=== PATIENT | female | born 1950 | race Caucasian/White ===

== ENCOUNTER 2016-12-16 18:05 | Inpatient (IN) ==
--- NOTE | 2016-12-16 18:40 | Emergency Department Note ---
Disposition Clinical Impression: Dysarthria, Right facial numbness Disposition: Admitted As Inpatient Condition: Good Referrals: Andressa Lindsey MD [Primary Care Provider] - Forms: ED Satisfaction Letter Weakness HPI - General Chief complaint: ED Weakness Stated complaint: Neuro symptoms Time Seen by Provider: 12/16/16 18:19 Source: family Mode of arrival: private vehicle Limitations: no limitations Nursing Notes Reviewed: Yes Vital Signs Reviewed: Yes - History of Present Illness HPI Narrative: 66-year-old female history of hypertension and hyperlipidemia who presents to the ER due to weakness, slurring words, right facial numbness. Patient states that yesterday she noticed some worry vision. She reports she woke up today and felt better. Family reports that they saw her this morning and she seemed more quiet than usual. Family states that they were out today and that they were called because she was acting abnormal. When they saw her again they state that she was slurring her words and was having trouble walking. Patient also complained of right facial numbness. No history of CVA or TIA. No cardiac history. Family reports she has been noncompliant with her medications ever since her 3 years ago. No other complaints. No recent injuries. Pt Subjective Complaint: generalized weakness/fatigue, difficulty ambulating Onset (ago): hour(s) Duration: intermittent Migration: none Pain Severity: none Pain Scale: 0 Improves with: none Worsens with: none Associated symptoms: Reports: chest pain (Earlier today now resolved), headaches - Related Data Home Medications Medication Instructions Recorded Confirmed Rosuvastatin Calcium [Crestor] 10 mg PO HS 12/16/16 12/16/16 hydroCHLOROthiazide 25 mg PO DAILY 12/16/16 12/16/16 [Hydrochlorothiazide] Allergies Allergy/AdvReac Type Severity Reaction Status Date / Time No Known Allergies Allergy Verified 12/16/16 18:17 All systems ED: reviewed and negative except as stated. Constitutional: Denies: fever Cardiovascular: Reports: chest pain Respiratory: Denies: cough, dyspnea Gastrointestinal: Denies: abdominal pain, nausea, vomiting Neurological: Reports: headache, paresthesias (Right face). Denies: weakness, numbness Past Medical History - Past Medical History Attestation: Yes The following information was validated with the patient. Source: patient, obtained from family Medical history: Reports: hypertension Psychiatric history: Reports: anxiety - Social History Smoking Status: Current every day smoker Smokeless Tobacco Status: No Alcohol use: Reports: none Drug use: Reports: none Physical Exam - General Limitations: no limitations General appearance: alert, in no apparent distress - Head Head exam: atraumatic, normocephalic, normal inspection - Eye Eye exam: Present: normal appearance, PERRL, EOMI - ENT ENT exam: normal exam - Neck Neck exam: Present: normal inspection, full ROM - Chest Chest inspection: Present: normal inspection, symmetric chest wall rise - Respiratory Respiratory exam: Present: normal lung sounds bilaterally - Cardiovascular Cardiovascular exam: Present: regular rate, normal rhythm, normal heart sounds - Abdominal Exam Abdominal exam: Present: soft, Non-Tender. Absent: tenderness - Extremities Exam Extremities exam: Present: normal inspection, full ROM - Expanded Upper Extremity Exam Shoulder exam: Present: normal inspection, full ROM Arm exam: Present: normal inspection, full ROM Elbow exam: Present: normal inspection, full ROM Forearm/Wrist exam: Present: normal inspection, full ROM Hand exam: Present: normal inspection, full ROM Vascular exam: Normal: radial pulse - Expanded Lower Extremity Exam Hip/Pelvis exam: Present: normal inspection, full ROM Upper leg exam: Present: normal inspection, full ROM Knee exam: Present: normal inspection, full ROM Lower leg exam: Present: normal inspection, full ROM Ankle exam: Present: normal inspection, full ROM Foot/toe exam: Present: normal inspection, full ROM Neurovascular/Tendon exam: Absent: motor deficit, sensory deficit - Neurological Exam Neurological exam: Present: alert, oriented X3, CN II-XII intact (With the exception of paresthesias to the right maxilla). Absent: motor sensory deficit - Expanded Neurological Exam Patient oriented to: Present: person, place, time Cranial nerves: EOM function (II, III, IV, ): Normal, facial sensation (V): Normal, spinal accessory function (XI): Normal, tongue deviation (XII): Normal Cerebellar function: finger to nose: Normal, heel to contreras: Normal Motor strength - LUE: 5/5 Motor strength - RUE: 5/5 Motor strength - LLE: 5/5 Motor strength - RLE: 5/5 Sensory exam upper extremity: light touch: Normal Sensory exam lower extremity: light touch: Normal Coma Scale Eye Opening: Spontaneous Coma Scale Motor Response: Obeys Commands Coma Scale Verbal Response: Oriented Coma Scale Total: 15 - Skin Skin exam: Present: warm, dry, intact Course Course Narrative: She was profoundly hypertensive upon initial evaluation which has somewhat resolved without intervention. We will obtain a CT scan of her head as well as an EKG, labs including troponin and urinalysis. Patient will be admitted for neuro deficits. - Reevaluation(s) Reevaluation #1: Hypertension has improved without intervention. Her symptoms are also improving at this time. She is agreeable to staying in the hospital for observation. We will admit to the hospitalist service. Vital Signs Temperature 98.7 F 12/16/16 18:10 Pulse Rate 90 12/16/16 18:10 Respiratory Rate 18 12/16/16 18:10 Blood Pressure 202/117 12/16/16 18:10 O2 Sat by Pulse Oximetry 95 12/16/16 18:10 Temperature 98.7 F 12/16/16 18:10 Pulse Rate 83 12/16/16 18:31 Respiratory Rate 18 12/16/16 18:31 Blood Pressure 186/101 12/16/16 18:31 O2 Sat by Pulse Oximetry 94 12/16/16 18:31 Oxygen Delivery Oxygen Delivery Room Air Weakness - MDM Narrative Medical decision making narrative: 66-year-old female presents to the ER due to dysarthria, right facial paresthesias and difficulty walking. She is noncompliant with her medications and has been hypertensive recently. She was profoundly hypertensive initially here which improved without intervention. CT scan of her head shows no acute findings. EKG is nonischemic. Troponin is within normal limits. Her symptoms have improved as her blood pressure has lowered. We will admit to the hospitalist service for suspected hypertensive encephalopathy versus TIA. - Lab Data Lab results reviewed: Yes I reviewed the patient's lab results. Result diagrams: 12/16/16 18:25 12/16/16 18:25 Lab Results 12/16/16 12/16/16 12/16/16 Range/Units 18:12 18:25 18:25 WBC 8.4 (4.3-11.1) K/mcL RBC 4.91 (3.82-4.97) M/mcL Hgb 14.9 (11.5-15.4) g/dL Hct 44.6 (35.3-44.9) % MCV 90.8 (83.0-100.0) fL MCH 30.3 (28.0-33.3) pg MCHC 33.4 (31.6-35.5) g/dL RDW 12.5 (11.5-14.5) % Plt Count 307 (140-400) K/mcL MPV 10.0 (9.4-12.4) fL Immature Gran % 0.6 (0-4) % Seg Neutrophils % 53.0 % Lymphocytes % 36.2 % Monocytes % 7.4 % Eosinophils % 2.3 % Basophils % 0.5 % Neutrophils # 4.4 (1.6-8.9) K/mcL Lymphocytes # 3.0 (0.6-4.6) K/mcL Monocytes # 0.6 (0.0-1.3) K/mcL Eosinophils # 0.2 (0.0-0.6) K/mcL Basophils # 0.0 (0.0-0.2) K/mcL PT 10.7 (9.4-12.1) Seconds INR 1.0 Sodium (136-145) mEq/L Potassium (3.5-4.5) mEq/L Chloride (98-109) mEq/L Carbon Dioxide (19-29) mEq/L BUN (7-20) mg/dL Creatinine (0.57-1.11) mg/dL Est GFR ( Amer) (> 60) Est GFR (Non-Af Amer) (> 60) BUN/Creatinine Ratio (6-26) Glucose (70-99) mg/dL POC Glucose 96 H (58-89) Calculated Osmolality (280-300) Calcium (8.6-10.8) mg/dL Troponin I (0-0.03) ng/mL 12/16/16 12/16/16 Range/Units 18:25 18:25 WBC (4.3-11.1) K/mcL RBC (3.82-4.97) M/mcL Hgb (11.5-15.4) g/dL Hct (35.3-44.9) % MCV (83.0-100.0) fL MCH (28.0-33.3) pg MCHC (31.6-35.5) g/dL RDW (11.5-14.5) % Plt Count (140-400) K/mcL MPV (9.4-12.4) fL Immature Gran % (0-4) % Seg Neutrophils % % Lymphocytes % % Monocytes % % Eosinophils % % Basophils % % Neutrophils # (1.6-8.9) K/mcL Lymphocytes # (0.6-4.6) K/mcL Monocytes # (0.0-1.3) K/mcL Eosinophils # (0.0-0.6) K/mcL Basophils # (0.0-0.2) K/mcL PT (9.4-12.1) Seconds INR Sodium 142 (136-145) mEq/L Potassium 3.7 (3.5-4.5) mEq/L Chloride 106 (98-109) mEq/L Carbon Dioxide 27 (19-29) mEq/L BUN 12 (7-20) mg/dL Creatinine 0.69 (0.57-1.11) mg/dL Est GFR ( Amer) > 60 (> 60) Est GFR (Non-Af Amer) > 60 (> 60) BUN/Creatinine Ratio 17 (6-26) Glucose 95 (70-99) mg/dL POC Glucose (58-89) Calculated Osmolality 294 (280-300) Calcium 9.6 (8.6-10.8) mg/dL Troponin I 0.00 (0-0.03) ng/mL - Radiology Data Radiology results reviewed: Yes I reviewed the patient's radiology results. Head CT 12/16/16 18:26 IMPRESSION: No acute intracranial abnormality. D/ / Giuseppe Priest MD / Giuseppe Priest MD Interpreting Provider: Giuseppe Priest MD - EKG Data EKG attestation: Yes I reviewed and interpreted this EKG. EKG results narrative: EKG demonstrates sinus rhythm with a rate of 87 bpm. Normal axis. Normal intervals. Normal R-wave progression. No gross ST elevations or depressions. No acute ischemic findings. S.B.A.R. - S.B.A.R. Situation: Demographics, MOA Background: Presenting Complaint, Relevant PMH, Meds, & Allergies Assessment: Vital Signs, Course and respsone to treatment, Exam Concerns, Patient/Family Expectation, Pertinant Lab Results Recommendation: Barrier(s) to disposition, Recommendation based on pending studies, treatments, or consults Perla Report Given to: Dr. Eddie Duncan Repor Time: 20:14 Attestation Statement - Attestation Attestation: I examined this patient and my medical decision-making was reviewed with the Resident Physician. I agree with the documented findings, disposition and treatment plan as described except to the extent set forth below. Patient describes mild headache. Family members described slurring of speech, although I do not appreciate any slurring of speech objectively on my evaluation. Neurological exam is normal. Funduscopic exam shows some copper wiring but no flame hemorrhages or cotton wool spots. The fundus was not well- visualized. Blood pressure came down without intervention from us. CT scan negative.
[2016-12-16 18:41] LABS: Basophils % 0.5 %; Eosinophils # 0.2 K/mcL (0.0-0.6); Eosinophils % 2.3 %; Hematocrit 44.6 % (35.3-44.9); Hemoglobin 14.9 g/dL (11.5-15.4); Immature Granulocytes % 0.6 % (0-4); Lymphocytes % 36.2 %; Mean Corpuscular HGB Conc 33.4 g/dL (31.6-35.5); Mean Corpuscular Hemoglobin 30.3 pg (28.0-33.3); Mean Corpuscular Volume 90.8 fL (83.0-100.0); Monocytes # 0.6 K/mcL (0.0-1.3); Monocytes % 7.4 %; Neutrophils # 4.4 K/mcL (1.6-8.9); Platelet Count 307 K/mcL (140-400); Red Blood Count 4.91 M/mcL (3.82-4.97); Red Cell Distribution Width 12.5 % (11.5-14.5)
[2016-12-16 18:50] LABS: Prothrombin Time 10.7 Seconds (9.4-12.1)
[2016-12-16 18:52] LABS: Blood Urea Nitrogen 12 mg/dL (7-20); Carbon Dioxide 27 mEq/L (19-29); Chloride 106 mEq/L (98-109); Potassium 3.7 mEq/L (3.5-4.5); Sodium 142 mEq/L (136-145)
[2016-12-16 18:53] LABS: BUN/Creatinine Ratio 17 (6-26); Calcium 9.6 mg/dL (8.6-10.8); Glucose 95 mg/dL (70-99); Osmolality,Calculated 294 (280-300); eGFR For African Americans > 60 (> 60); eGFR For Non-African Americans > 60 (> 60)
[2016-12-16] MEDS: Aspirin 325 MG TABLET PO ONE ×2 (20:24→20:37)
[2016-12-16] MEDS ORDERED: Naloxone 0.4 MG/ML INJ IVP PRN (22:45)
[2016-12-16] MEDS ORDERED: Ondansetron 4 MG/2 ML VIAL IVP PRN (22:45)
--- NOTE | 2016-12-16 22:52 | Internal Med History&Physical ---
<José Bonner - Last Filed: 12/16/16 23:42> Date of Encounter: 12/16/16 Time of Encounter: 22:49 Assessment and Plan (1) TIA (transient ischemic attack) Current visit: Yes Status: Acute - Dysarthria, unsteady gait and right facial numbness resolved within one day - CT head in ED showed no acute abnormalities - Less likely CVA vs bells pasly vs migraine given timing and symptoms - Given ASA 325 mg in ED - Echocardiogram, neck CTA, lipid panel pending - Allow for permissive HTN, resume statin, ASA, continuous telemetry to rule out paroxsymal AFib - MRI in AM - Does not require PT/OT as she is asymptomatic at this time. - No need for neurology consult unless results in AM requires further management Qualifiers: Transient cerebral ischemia type: unspecified Qualified Code(s): G45.9 - Transient cerebral ischemic attack, unspecified (2) HTN (hypertension) Current visit: Yes Status: Acute - Uncontrolled in ED in 200s/110s upon arrival, patient admits to medication non compliance - Will allow for permissive HTN for 24 hours until 0800 tomorrow morning. - BP has improved without medication to 163/70 Qualifiers: Hypertension type: essential hypertension Qualified Code(s): I10 - Essential (primary) hypertension (3) DVT prophylaxis Current visit: Yes Status: Acute - SCDs. Will hold off on anticoagulation for risk of ischemic conversion. Internal Medicine - H&P: HPI Chief complaint: facial numbness, dysarthria Admitted From: Emergency Dept Plans for Post Hospital Care: Home History of present illness: Ms. King is a 66 year old female who presents to ED with a complaint of facial numbness, slurred speech, and unsteady gait beginning when she awoke this morning. Her only PMHx is HTN for which she admits to not taking her HCTZ or crestor for the past week due to forgetfulness. Last known well of bedtime yesterday. She has never experienced these symptoms in the past. She states that they were sudden in onset, and resolved by themselves in the emergency department. She also noted that her BP was significantly elevated in the ED at 202/117. She denies any symptoms of chest pain, SOB, abdominal pain, FUENTES, dizziness, dysuria, current numbness or tingling, fevers, chills. She does admit to one episode of loose stools this morning. She also noted some blurry vision in her right eye which has also resolved. In the ED, Pt was given ASA 325mg. Head CT showed no acute abnormality, EKG was sinus rhythm. Past Med Surg Social Fam HX - Past Medical History Medical history: hypertension Psychiatric history: anxiety - Past Surgical History Surgical History: other (tubal ligation, carpal tunnel) - Social History Smoking Status: Current every day smoker Smokeless Tobacco Status: No Alcohol use: none Drug use: none - Family History Mother Hx Family Cardiac Disorders: Yes Father Hx Family Cardiac Disorders: Yes Brother Hx Family Cardiac Disorders: Yes Internal Medicine - H&P: Meds Rosuvastatin Calcium [Crestor] 10 mg PO HS 12/16/16 [History] hydroCHLOROthiazide [Hydrochlorothiazide] 25 mg PO DAILY 12/16/16 [History] 3 Allergy/AdvReac Type Severity Reaction Status Date / Time No Known Allergies Allergy Verified 12/16/16 18:17 All Systems PM: A 10-system review of systems was performed and is negative for pertinent findings except as documented above in the HPI. - Constitutional Constitutional: no chills, no fatigue, no fever(s) - EENT Eyes: blurry vision Nose, mouth and throat: change in voice (dysarthria) - Cardiovascular Cardiovascular ROS IM: no chest pain, no diaphoresis, no dyspnea, no dyspnea on exertion, no lightheadedness, no palpitations - Respiratory Respiratory: no dyspnea, no dyspnea on exertion - Gastrointestinal Gastrointestinal: loose stools, no abdominal pain, no constipation, no diarrhea - Genitourinary Genitourinary: no dysuria, no urinary frequency, no urinary hesitancy, no urinary urgency - Musculoskeletal Musculoskeletal ROS IM: no muscle weakness, no numbness, no tingling - Neurological Neurological ROS: no confusion, no dizziness, no focal weakness, no headache(s) , no loss of vision, no numbness, no tingling, no other visual disturbances - Constitutional Vitals: Temp Pulse Resp BP Pulse Ox 98.7 F 81 18 170/79 94 12/16/16 18:10 12/16/16 21:46 12/16/16 20:27 12/16/16 21:46 12/16/16 21:46 Exam: Gen.: Vitals noted. No acute distress. AAOx3 HEENT: PERRL, oropharynx clear, Normocephalic, atraumatic, MMM. Cardiac: RRR, no murmur, +S1/S2 Pulmonary: CTA bilaterally, no wheezes, rales or rhonchi, equal chest expansion Abdomen: soft, nontender, BS noted, no guarding MSK: ROM intact, no joint swelling noted, muscle strenght 5/5 in all extremities Extremities: no BLE edema, nontender calf, no cyanosis or clubbing Neuro: A&Ox3, moves all extremities, no focal deficits, CN II-XII intact. NIH score 0 Psych: Appropriate mood and behavior Internal Med - H&P Results - Labs CBC & Chem 7: 12/16/16 18:25 12/16/16 18:25 <Ozzy Morocho - Last Filed: 12/17/16 06:33> Date of Encounter: 12/16/16 Internal Medicine - H&P: HPI History of present illness: Ms. King is a 66 year old female All Systems PM: A 10-system review of systems was performed and is negative for pertinent findings except as documented above in the HPI. - Constitutional Vitals: Temp Pulse Resp BP Pulse Ox 98.1 F 68 14 127/69 93 12/17/16 04:02 12/17/16 04:02 12/17/16 04:02 12/17/16 04:02 12/17/16 04:02 Internal Med - H&P Results - Labs CBC & Chem 7: 12/17/16 04:13 12/17/16 04:13 Labs: Short CBC 12/17/16 Range/Units 04:13 WBC 6.3 (4.3-11.1) K/mcL Hgb 13.6 (11.5-15.4) g/dL Hct 40.6 (35.3-44.9) % Plt Count 247 (140-400) K/mcL Neutrophils # 2.8 (1.6-8.9) K/mcL BMP 12/17/16 04:13 Sodium 141 Potassium 3.6 Chloride 105 Carbon Dioxide 27 BUN 12 Creatinine 0.68 Glucose 92 Calcium 9.0 - Attending Attestation I personally interviewed and examined this patient and my medical decision- making was reviewed with the Resident Physician. I agree with the documented findings, disposition and treatment plan as described except to the extent set forth below. Ozzy Morocho MD, MPH Hospitalist
[2016-12-17 00:20] LABS: Chol/HDL Ratio 7.2 (0-4.9)
[2016-12-17 04:34] LABS: Basophils % 0.3 %; Eosinophils # 0.2 K/mcL (0.0-0.6); Eosinophils % 3.5 %; Hematocrit 40.6 % (35.3-44.9); Hemoglobin 13.6 g/dL (11.5-15.4); Immature Granulocytes % 0.3 % (0-4); Lymphocytes # 2.8 K/mcL (0.6-4.6); Lymphocytes % 43.5 %; Mean Corpuscular HGB Conc 33.5 g/dL (31.6-35.5); Mean Corpuscular Hemoglobin 30.1 pg (28.0-33.3); Mean Corpuscular Volume 89.8 fL (83.0-100.0); Monocytes # 0.5 K/mcL (0.0-1.3); Monocytes % 8.2 %; Neutrophils # 2.8 K/mcL (1.6-8.9); Platelet Count 247 K/mcL (140-400); Red Blood Count 4.52 M/mcL (3.82-4.97); Red Cell Distribution Width 12.6 % (11.5-14.5); Segmented Neutrophils % 44.2 %
[2016-12-17 04:51] LABS: BUN/Creatinine Ratio 18 (6-26); Blood Urea Nitrogen 12 mg/dL (7-20); Carbon Dioxide 27 mEq/L (19-29); Chloride 105 mEq/L (98-109); Glucose 92 mg/dL (70-99); Osmolality,Calculated 291 (280-300); Potassium 3.6 mEq/L (3.5-4.5); Sodium 141 mEq/L (136-145); eGFR For African Americans > 60 (> 60); eGFR For Non-African Americans > 60 (> 60)
[2016-12-17 05:15] LABS: Hemoglobin A1C 5.2 %
[2016-12-17] MEDS: Aspirin 81 MG TAB.CHEW PO SCH (10:31)
--- NOTE | 2016-12-17 14:49 | Internal Med Progress Note ---
Date of Encounter: 12/17/16 Time of Encounter: 10:20 - Assessment and plan (1) CVA (cerebral vascular accident) Current Visit: Yes Status: Acute Assessment and plan: Patient reports facial numbness, slurred speech, unsteady gait upon awakening on the morning of arrival. Patient's only medical history is hypertension. She states she has not been taking any of her medicines are last week due to forgetfulness. Patient's last known well was bedtime the night before arrival. Patient states that all symptoms resolved in the emergency department. The only symptom that remains is slurred speech. Patient is neurologically intact, bilateral strength, both upper and lower extremities are strong and equal. Cranial nerves are intact. Speech is slightly slurred. Blood pressure was significantly elevated in the emergency department. Blood pressure has been better controlled on the floor. Continue home medications. She denies any chest pain, shortness of breath abdominal pain, headache, dizziness, vision changes, fever, chills, extremity weakness, numbness or tingling. Patient was given aspirin 325 in the emergency department. She will continue taking 81 mg aspirin. She is also been started on Crestor, which I have increased due to elevated lipid panel results. Echocardiogram shows no PFO. Brain MRI shows nonhemorrhagic infarct in the left thalamus. CTA of head and neck shows no intracranial flow-limiting stenosis or aneurysm. Neurology consult has been entered. Physical therapy and occupational therapy evaluations are entered. Speech therapy evaluation is also ordered and pending. Continue aspirin and statin. Head CT 12/16/16 18:26 IMPRESSION: No acute intracranial abnormality. D/ / Giuseppe Priest MD / Giuseppe Priest MD Interpreting Provider: Giuseppe Priest MD Echocardiogram 12/17/16 06:34 Impressions: LVEF 60%. Mild left ventricular diastolic dysfunction. Normal right ventricular structure and function. No significant valvular dysfunction. No pulmonary hypertension. No PFO with saline contrast injection. Left Ventricular Wall Motion: Rest Echo Findings All wall segments showed normal motion. Head CTA 12/17/16 09:30 IMPRESSION: Evaluation of the carotid bifurcations and proximal internal carotid arteries is degraded by motion. The internal carotid arteries are grossly patent without evidence of high-grade stenosis. If clinical concern for internal carotid artery stenosis persists, consider carotid Doppler ultrasound or repeat CTA of the neck, when patient is able to cooperate with imaging. No intracranial flow-limiting stenosis or aneurysm. D/ : / 12/17/2016 10:33:34 Bonnie Garcia MD / [email or web address] Interpreting Provider: Bonnie Garcia MD Neck CTA 12/17/16 09:30 IMPRESSION: Evaluation of the carotid bifurcations and proximal internal carotid arteries is degraded by motion. The internal carotid arteries are grossly patent without evidence of high-grade stenosis. If clinical concern for internal carotid artery stenosis persists, consider carotid Doppler ultrasound or repeat CTA of the neck, when patient is able to cooperate with imaging. No intracranial flow-limiting stenosis or aneurysm. D/ : / 12/17/2016 10:33:34 Bonnie Garcia MD / jazmine Interpreting Provider: Bonnie Garcia MD Brain MRI 12/17/16 23:39 IMPRESSION: Acute nonhemorrhagic infarct in the left thalamus. D/ / Quique Westfall MD / Quique Westfall MD Interpreting Provider: Quique Westfall MD Qualifiers: CVA mechanism: unspecified Qualified Code(s): I63.9 - Cerebral infarction, unspecified (2) Dysarthria Current Visit: Yes Status: Acute Assessment and plan: Patient's only remaining symptom from presentation is dysarthria. Speech is slightly slurred. Patient will have evaluation by speech therapy. Plan as above. (3) Right facial numbness Current Visit: Yes Status: Acute Assessment and plan: Plan as above. She does not have any noticeable facial droop, cranial nerves are intact. (4) HTN (hypertension) Current Visit: Yes Status: Acute Assessment and plan: Continue to monitor vital signs closely, blood pressure seems to be well- controlled at this time. Continue home medications. Qualifiers: Hypertension type: essential hypertension Qualified Code(s): I10 - Essential (primary) hypertension (5) DVT prophylaxis Current Visit: Yes Status: Acute Assessment and plan: Patient is ambulatory in the room. RUBEN clements ordered. - Time Spent With Patient less than 15 minutes - Subjective Interval history: Pt was seen and assessed at 1020, multiple family members at . Pt reports that she feels well, however, family states that she has been tired and that her speech is slurred. Pt does have some slurring of her speech. Pt has been made aware of MRI results and pending testing and evaluations. Patient denies vision changes, headache, nausea, vomiting, shortness of breath, abdominal pain. - Constitutional Vitals: Temp Pulse Resp BP Pulse Ox 98.1 F 101 16 153/78 97 12/17/16 11:07 12/17/16 11:07 12/17/16 11:07 12/17/16 11:07 12/17/16 11:07 General appearance: Present: cooperative, A&O X 3, pleasant, no acute distress, answers questions appropriately - Head Head exam: Present: atraumatic, normal inspection, normocephalic - Eye Eye exam: Present: EOMI, normal appearance, conjuntiva pink, sclera anicteric - Neck Neck exam general surgery: Present: supple, trachea midline. Absent: tenderness - Respiratory Respiratory exam: Present: decreased breath sounds, CTAB. Absent: accessory muscle use, chest wall tenderness, rales, rhonchi, wheezes - Cardiovascular Cardiovascular exam: Present: RRR, +S1, +S2. Absent: diastolic murmur, gallop, rubs, systolic murmur - GI/Abdominal GI/Abdominal exam: Present: normal bowel sounds, soft. Absent: distended, guarding, hepatomegaly, tenderness - Extremities Exam Extremities exam: Present: normal inspection, warm, radial pulses palpable and symmetrical. Absent: calf tenderness, cyanotic, pedal edema, tenderness - Neurological Exam Neurological exam: Present: alert, CN II-XII intact, oriented X3, reflexes normal, no focal deficits, strengths equal and symetr throughout. Absent: altered, motor sensory deficit, pronater drift, facial droop, speech deficit - Expanded Neurological Exam Neurological exam expanded: Present: protecting the airway. Absent: inattentive Patient oriented to: Present: person, place, time Speech: Present: slurred Cerebellar function: finger to nose: Normal, heel to [place]: Normal Coma Scale Eye Opening: Spontaneous Coma Scale Motor Response: Obeys Commands Coma Scale Verbal Response: Oriented Coma Scale Total: 15 - Skin Skin exam: Present: dry, intact, normal color, warm. Absent: rash Internal Medicine: Result - Labs CBC & Chem 7: 12/17/16 04:13 12/17/16 04:13 Labs: Short CBC 12/17/16 Range/Units 04:13 WBC 6.3 (4.3-11.1) K/mcL Hgb 13.6 (11.5-15.4) g/dL Hct 40.6 (35.3-44.9) % Plt Count 247 (140-400) K/mcL Neutrophils # 2.8 (1.6-8.9) K/mcL BMP 12/17/16 04:13 Sodium 141 Potassium 3.6 Chloride 105 Carbon Dioxide 27 BUN 12 Creatinine 0.68 Glucose 92 Calcium 9.0 - ABG Interpretation ABG results: PT/INR, D-dimer PT 10.7 Seconds (9.4-12.1) 12/16/16 18:25 - Impressions Impressions Echocardiogram 12/17/16 06:34 Impressions: LVEF 60%. Mild left ventricular diastolic dysfunction. Normal right ventricular structure and function. No significant valvular dysfunction. No pulmonary hypertension. No PFO with saline contrast injection. Left Ventricular Wall Motion: Rest Echo Findings All wall segments showed normal motion. Findings: Study Quality * Technically adequate exam. ECG Findings * Normal sinus rhythm. Left Ventricle * Mild left ventricular diastolic dysfunction. * LVEF 60%. * Normal LV size and wall thickness. Right Ventricle * Normal right ventricular structure and function. Left Atrium * Normal left atrial size. Right Atrium * Normal right atrial size. Aortic Valve * No aortic regurgitation. * Aortic valve not well visualized. * No aortic stenosis. Mitral Valve * Normal mitral valve structure. * No mitral stenosis. * Trace mitral regurgitation. Tricuspid Valve * Tricuspid valve not well visualized. * No tricuspid regurgitation. * Estimated RA pressure is 3 mmHg. * Estimated RVSP is 10 mmHg. * No pulmonary hypertension. Pulmonic Valve * Pulmonic valve is not well visualized. * No pulmonic stenosis. * No pulmonic regurgitation. Pulmonary Artery * Pulmonary artery not well visualized. Pericardium * There is no pericardial effusion present. Interatrial Septum * No evidence of PFO by color Doppler. IVC * Normal IVC dimensions and inspiratory collapse. Aorta * Normally sized aortic root. Head CTA 12/17/16 09:30 IMPRESSION: Evaluation of the carotid bifurcations and proximal internal carotid arteries is degraded by motion. The internal carotid arteries are grossly patent without evidence of high-grade stenosis. If clinical concern for internal carotid artery stenosis persists, consider carotid Doppler ultrasound or repeat CTA of the neck, when patient is able to cooperate with imaging. No intracranial flow-limiting stenosis or aneurysm. D/ / 12/17/2016 10:33:34 Bonnie Garcia MD / jazmine Interpreting Provider: Bonnie Garcia MD Neck CTA 12/17/16 09:30 IMPRESSION: Evaluation of the carotid bifurcations and proximal internal carotid arteries is degraded by motion. The internal carotid arteries are grossly patent without evidence of high-grade stenosis. If clinical concern for internal carotid artery stenosis persists, consider carotid Doppler ultrasound or repeat CTA of the neck, when patient is able to cooperate with imaging. No intracranial flow-limiting stenosis or aneurysm. D/ : / 12/17/2016 10:33:34 Bonnie Garcia MD / jazmine Interpreting Provider: Bonnie Garcia MD Brain MRI 12/17/16 23:39 IMPRESSION: Acute nonhemorrhagic infarct in the left thalamus. D/ / Quique Westfall MD / Quique Westfall MD Interpreting Provider: Quique Westfall MD Consult Discharge Plan - Plan Referrals: Andressa Lindsey MD [Primary Care Provider] -
--- NOTE | 2016-12-17 17:02 | Electrocardiograph Report ---
[address] [address] Test Date: 2016-12-16 Pat Name: Lesly King Department: 104 Room: 3B Gender: F [employer] Equipment Operator: ROJAS : 1950 Requested By: Brenden Patel Order Number: [id number] Reading MD: Gopi Hendricks Measurements Intervals [place] Rate: 87 P: 60 NC: 192 QRS: 36 QRSD: 97 T: 54 QT: 387 QTc: 432 Interpretive Statements SINUS RHYTHM Electronically Signed On 12-17-2016 17:00:22 EDT by Gopi Hendricks
--- NOTE | 2016-12-17 17:55 | Neurology - Consult Note ---
Date of Encounter: 12/17/16 Time of Encounter: 17:37 Assessment and Plan (1) CVA (cerebral vascular accident) Current Visit: Yes Status: Acute This is a 66 year old woman with HTN who developed acute onset of right facial numbness, slurred speech and unsteady gait with rapid resolution. MRI of brain showed left thalamus lacunar infarct. This is likely small vessel etiology. Will complete stroke work up including echocardiography, carotid artery duplex study. Will keep her on Aspirin 325mg daily and continue statin therapy. Permissive hypertension during acute phase of stroke (7 days). Patient has no focal neurological deficits now. Patient can be discharged home after work up is complete. follow up with PCP 1-2 weeks after discharge. Qualifiers: CVA mechanism: unspecified Qualified Code(s): I63.9 - Cerebral infarction, unspecified History of Present Illness Chief complaint: right facial numbness HPI: Ms. King is a 66 year old female with PMH significant for HTN who developed acute onset of right facial numbness two days ago. She was also observed to have dysarthria, unsteady gait which all resolved within 24 hours. She was determined not to be tPA thrombolysis therapy. She has no focal neurological deficits. She has HTN and apparently has not been compliant with antihypertensive therapy. MRI of brain without contrast showed small acute lacunar infarct involving the left thalamus. No midline shift, no mass effects. Past Med Surg Social Fam HX - Past Medical History Medical history: hypertension Psychiatric history: anxiety - Past Surgical History Surgical History: other (tubal ligation, carpal tunnel) - Social History Smoking Status: Current every day smoker Packs per day: 0.25 Smokeless Tobacco Status: No Alcohol use: none Drug use: none - Family History Mother Hx Family Cardiac Disorders: Yes Father Hx Family Cardiac Disorders: Yes Brother Hx Family Cardiac Disorders: Yes Medications and Allergies Rosuvastatin Calcium [Crestor] 10 mg PO HS 12/16/16 [History] hydroCHLOROthiazide [Hydrochlorothiazide] 25 mg PO DAILY 12/16/16 [History] 3 Allergy/AdvReac Type Severity Reaction Status Date / Time No Known Allergies Allergy Verified 12/16/16 18:17 All Systems: A 10-system review of systems was performed and is negative for pertinent findings except as documented above in the HPI. Physical Examination - Vital Signs Vital Signs: Initial Vital Signs Temp Pulse Resp BP Pulse Ox 98.7 F 90 18 202/117 95 12/16/16 18:10 12/16/16 18:10 12/16/16 18:10 12/16/16 18:10 12/16/16 18:10 - Constitutional General appearance: comfortable - Neurologic Sensorimotor examination: intact Detailed motor examination: grossly full strength in all extremities Motor examination - right side: 5/5: deltoids, biceps, triceps, wrist flexion, wrist extension, educational speech language clinician, hip flexors, tibialis Anterior, quadriceps, toe extension (EHL), plantarflexion Motor examination - left side: 5/5: deltoids, biceps, triceps, wrist flexion, wrist extension, hip flexors, educational speech language clinician, quadriceps, tibialis Anterior, toe extension (EHL), plantarflexion Detailed sensory examination: intact Posture: other (None) Reflex and gait examination: intact Reflexes: Biceps: 1+, Triceps: 1+, Brachioradialis: 1+, Patella: 1+, Achilles: 1 + Mental Status Examination: awake, alert, oriented to person, oriented to place, oriented to time, follows commands appropriately, answers questions appropriately, no agnosia, no aphasia, no aproxia Cranial nerve examination: PERRL, EOMI, visual horne intact, corneal reflexes brisk symmetrically, sensory to face intact, mastication intact, no facial asymmetry is present, no dysarthria, hearing is intact symmetrically, soft palate elevates bilaterally upon phonation, gag reflex intact, flexes SCM and trapezius muscles symmetrically with full power, tongue protrudes midline, no atrophy or facial fasiculations present Results - Laboratory Findings CBC and BMP: 12/17/16 04:13 12/17/16 04:13 Abnormal lab findings: Abnormal lab results POC Glucose 96 (58-89) H 12/16/16 18:12 Triglycerides 309 mg/dL (< 150) H 12/16/16 18:25 Cholesterol 252 mg/dL (< 200) H 12/16/16 18:25 LDL Cholesterol, Calc 155 mg/dL (0-99) H 12/16/16 18:25 VLDL Cholesterol, Calc 62 mg/dL (< 31) H 12/16/16 18:25 HDL Cholesterol 35 mg/dL (40-59) L 12/16/16 18:25 Cholesterol/HDL Ratio 7.2 (0-4.9) H 12/16/16 18:25 Consult Discharge Plan - Plan Referrals: Andressa Lindsey MD [Primary Care Provider] -
[2016-12-17] MEDS: *HR* Heparin 5,000 UNIT/ML VIAL SQ SCH (21:27)
[2016-12-17 23:06] LABS: Bilirubin,Urine Negative (Negative); Blood,Urine Negative (Negative); Clarity,Urine Clear (Clear); Color,Urine Yellow (Yellow); Glucose,Urine (UA) Normal (Normal); Ketones,Urine Negative (Negative); Leukocyte Esterase,Urine Negative (Negative); Nitrite,Urine Negative (Negative); PH,Urine 6.5 pH Units (5.0-8.0); Protein,Urine Negative (Neg-Trace); Specific Gravity,Urine 1.018 (1.010-1.025); Urobilinogen,Urine Normal (Normal)
[2016-12-18 04:38] LABS: Basophils % 0.5 %; Eosinophils # 0.2 K/mcL (0.0-0.6); Eosinophils % 3.6 %; Hematocrit 41.4 % (35.3-44.9); Hemoglobin 13.7 g/dL (11.5-15.4); Immature Granulocytes % 0.2 % (0-4); Lymphocytes # 2.6 K/mcL (0.6-4.6); Lymphocytes % 42.5 %; Mean Corpuscular HGB Conc 33.1 g/dL (31.6-35.5); Mean Corpuscular Hemoglobin 29.9 pg (28.0-33.3); Mean Corpuscular Volume 90.4 fL (83.0-100.0); Mean Platelet Volume 10.1 fL (9.4-12.4); Monocytes # 0.5 K/mcL (0.0-1.3); Monocytes % 8.3 %; Neutrophils # 2.8 K/mcL (1.6-8.9); Platelet Count 263 K/mcL (140-400); Red Blood Count 4.58 M/mcL (3.82-4.97); Red Cell Distribution Width 12.4 % (11.5-14.5); Segmented Neutrophils % 44.9 %
[2016-12-18 05:02] LABS: BUN/Creatinine Ratio 23 (6-26); Blood Urea Nitrogen 15 mg/dL (7-20); Carbon Dioxide 27 mEq/L (19-29); Chloride 107 mEq/L (98-109); Glucose 87 mg/dL (70-99); Osmolality,Calculated 296 (280-300); Potassium 3.6 mEq/L (3.5-4.5); Sodium 143 mEq/L (136-145); eGFR For African Americans > 60 (> 60); eGFR For Non-African Americans > 60 (> 60)
[2016-12-18] MEDS: *HR* Heparin 5,000 UNIT/ML VIAL SQ SCH ×2 (05:29→12:21)
[2016-12-18] MEDS: Aspirin 81 MG TAB.CHEW PO SCH (09:09)
[2016-12-18 11:14] VITALS: BP 165/95
--- NOTE | 2016-12-18 12:37 | Discharge Summary ---
Date of Encounter: 12/18/16 Time of Encounter: 08:50 - Discharge Diagnosis (1) CVA (cerebral vascular accident) Priority: Primary Status: Acute Comments: Patient reports facial numbness, slurred speech, unsteady gait upon awakening on the morning of arrival. Patient's only medical history is hypertension. She states she has not been taking any of her medicines are last week due to forgetfulness. Patient's last known well was bedtime the night before arrival. Patient states that all symptoms resolved in the emergency department. The only symptom that remains is slurred speech. Patient is neurologically intact, bilateral strength, both upper and lower extremities are strong and equal. Cranial nerves are intact. Speech is slightly slurred. Blood pressure was significantly elevated in the emergency department. Blood pressure has been better controlled on the floor. Continue home medications. She denies any chest pain, shortness of breath abdominal pain, headache, dizziness, vision changes, fever, chills, extremity weakness, numbness or tingling. Patient was given aspirin 325 in the emergency department. She will continue taking 81 mg aspirin. She is also been started on Crestor, which I have increased due to elevated lipid panel results. Echocardiogram shows no PFO. Brain MRI shows nonhemorrhagic infarct in the left thalamus. CTA of head and neck shows no intracranial flow-limiting stenosis or aneurysm. Carotids completed. 60-79% stenosis of left ICA, nonstenotic plaque located on right. Patient will require speech therapy outpatient. She has no PT or OT needs Pt is mildly hypertensive, permissive hypertension briefly. Pt will need to follow up with PCP for continued monitoring and medications. Continue aspirin and statin. Qualifiers: CVA mechanism: unspecified Qualified Code(s): I63.9 - Cerebral infarction, unspecified (2) Dysarthria Priority: Secondary Status: Acute Comments: Patient's only remaining symptom from presentation is dysarthria. Speech is slightly slurred. Pt has been evaluated by speech therapy, they recommend that she continue outpatient therapy after discharge. (3) Right facial numbness Priority: Secondary Status: Acute Comments: Plan as above. She does not have any noticeable facial droop, cranial nerves are intact. Pt states that it seems to be improving slightly today. she is not having difficulty with eating or drinking. (4) HTN (hypertension) Priority: Secondary Status: Chronic Comments: Plan as above for CVA. Qualifiers: Hypertension type: essential hypertension Qualified Code(s): I10 - Essential (primary) hypertension (5) DVT prophylaxis Priority: Secondary Status: Acute Comments: Pt is ambulatory in the room. RUBEN clements ordered. - Discharge Medications Prescriptions: Aspirin/Calcium Carbonate/Mag [Aspirin Buffered 325 mg Tab] 325 mg PO DAILY #30 tablet Rosuvastatin [Crestor] 20 mg PO HS #30 tablet Home Medications: hydroCHLOROthiazide [Hydrochlorothiazide] 25 mg PO DAILY 12/16/16 [History] Aspirin/Calcium Carbonate/Mag [Aspirin Buffered 325 mg Tab] 325 mg PO DAILY #30 tablet 12/18/16 [Rx] Rosuvastatin [Crestor] 20 mg PO HS #30 tablet 12/18/16 [Rx] Allergies/Adverse Reactions: 3 Allergy/AdvReac Type Severity Reaction Status Date / Time No Known Allergies Allergy Verified 12/16/16 18:17 Procedures/tests Complete & Pending: Procedures Performed prior 72 hours Category Date Time Status EV carotid duplex imaging BI Routine Y 12/18/16 08:05 Ordered Date of admission: 12/17/16 19:37 Primary care physician: Andressa Lindsey, Discharging clinician: Ivette Grimm Anticipated date of discharge: 12/18/16 - Patient Status Disposition: Home, Self-Care Condition: Good Functional capacity at discharge: independent ambulation Overall status at discharge: patient is progressing back to baseline - Discharge Instructions Follow Up With: Andressa Lindsey MD [Primary Care Provider] - Additional Instructions: Please try to follow a heart healthy diet. Please try to stop smoking. Make sure that you take your medications every day. Return to the emergency department as needed for any other problems or concerns. Follow up with your primary care provider to be released to work. Follow up with her primary care provider for changes in antihypertensive medication. Your prescriptions have been called in to [facility]. - Diet and Activity Activity: increase activity as tolerated, return to work once cleared by your PCP/specialist Diet: low fat, low cholesterol Hospital course: Please see assessment and plan for hospital course. Patient is not interested in smoking cessation. She has already had her flu shot at work. Patient reports having had a pneumonia vaccine in the past. Time spent discussing smoking cessation with patient: 3 to 10 minutes - Time Spent with Patient Total time spent providing and/or coordinating discharge services: Less than 30 minutes - Constitutional Vitals: Temp Pulse Resp BP Pulse Ox 97.9 F 84 15 165/95 93 12/18/16 11:12 12/18/16 11:12 12/18/16 11:12 12/18/16 11:12 12/18/16 11:12 General appearance: Present: cooperative, A&O X 3, pleasant, no acute distress, answers questions appropriately - Head Head exam: Present: atraumatic, normal inspection, normocephalic - Eye Eye exam: Present: normal appearance, conjuntiva pink, sclera anicteric - Neck Neck exam general surgery: Present: supple, trachea midline. Absent: lymphadenopathy - Respiratory Respiratory exam: Present: CTAB. Absent: accessory muscle use, rales, rhonchi, wheezes - Cardiovascular Cardiovascular exam: Present: RRR, +S1, +S2. Absent: diastolic murmur, gallop, rubs, systolic murmur - GI/Abdominal GI/Abdominal exam: Present: normal bowel sounds, soft. Absent: distended, hepatomegaly, tenderness - Extremities Exam Extremities exam: Present: normal capillary refill, normal inspection, warm, radial pulses palpable and symmetrical. Absent: calf tenderness, cyanotic, pedal edema, tenderness - Neurological Exam Neurological exam: Present: alert, oriented X3, no focal deficits, strengths equal and symetr throughout, speech deficit. Absent: motor sensory deficit - Skin Skin exam: Present: dry, intact, normal color, warm. Absent: rash
[2016-12-21 08:48] LABS: ANA IgG by ELISA NONE DETECTED (None Detected)
== END 2016-12-18 17:14 | disposition home or self-care (01) | DRG 66 ==
LOC: EMEROO 18:05 → 3BNU 18:05
PROVIDERS: ADMIT Hospitalist; ATTEND Registered Nurse